=== PATIENT | male | born 1940 | race Caucasian/White ===

== ENCOUNTER → 2016-07-11 | Outpatient (CLI) | payer OTHER ==
--- NOTE | 2016-07-12 11:52 | MR ---
MRI of the Lumbar Spine (Without Contrast) Clinical Indications: Bilateral lower extremity sciatica. Technique: Sagittal and axial T1 and T2 MR sequences of the lumbar spine without contrast. Findings: L1-L2: No disk herniation or stenosis. L2-L3: No disk herniation or stenosis. L3-L4: Diffuse annular bulging ventrally along with ligamentum flavum hypertrophy and facet degenerat baldo arthropathy posteriorly contributes to severe acquired central canal stenosis. There is tethering of the cauda equina within the thecal space with marked crowding of nerve roots. Annular bulging ext ends into the foramina bilaterally, which appear moderately stenotic, left greater than right. L4-L5: Moderate acquired central canal stenosis is present at this level, with diffuse annular bulgin g ventrally and ligamentum flavum and facet degenerative hypertrophy posteriorly. The neural foramina are moderately narrowed bilaterally, right greater than left. L5-S1: Disk desiccation and annular bulging with intervertebral disk height loss, associated with mil d bilateral neural foraminal stenosis. No discrete disk prolapse or significant central canal encroac hment. Marrow signal intensity appears unremarkable. Lumbar alignment is intact. Impression: 1. Severe acquired central canal stenosis at L3-L4. Bilateral neural foraminal stenosis. 2. Moderate acquired central canal stenosis at L4-L5. Moderate bilateral neural foraminal stenosis. 3. Other level findings as above.
== END ==
LOC: FIMAGING 18:30
PROVIDERS: ATTEND Internal Medicine
DX: M48.06 Spinal stenosis, lumbar region (principal); M51.86 Other intervertebral disc disorders, lumbar region; M51.87 Other intervertebral disc disorders, lumbosacral region; M48.07 Spinal stenosis, lumbosacral region

== ENCOUNTER → 2017-04-20 | Outpatient (CLI) | payer OTHER | LOC: BHFA 09:30 | PROVIDERS: ATTEND Internal Medicine Cardiovascular Disease | DX: I49.9 Cardiac arrhythmia, unspecified (principal) ==